=== PATIENT | male | born 1995 | race American Indian/Alaskan Native ===

== ENCOUNTER 2016-12-24 22:09 | Emergency (ER) | payer OTHER, MEDICAID ==
[2016-12-24 23:00] LABS: Basophils % (Auto) 0.6 % (0.0-1.8); Eosinophils % (Auto) 0.8 % (0.0-4.3); Hematocrit 47.4 % (35.5-45.6); Hemoglobin 16.3 gm/dl (11.8-15.2); Mean Corpuscular HGB Conc 34 % (32-34); Mean Corpuscular Hemoglobin 30 pg (28-32); Mean Corpuscular Volume 88 fl (84-94); Platelet Count 320 K/mm3 (140-440); Red Blood Count 5.41 M/mm3 (3.65-5.03); Red Cell Distribution Width 13.8 % (13.2-15.2); White Blood Count 7.1 K/mm3 (4.5-11.0)
[2016-12-24 23:19] LABS: Anion Gap 19 mmol/L; BUN/Creatinine Ratio 11.53; Blood Urea Nitrogen 15 mg/dL (9-20); Calcium 9.6 mg/dL (8.4-10.2); Carbon Dioxide 26 mmol/L (22-30); Chloride 99.6 mmol/L (98-107); Glucose 100 mg/dL (75-100); Potassium 3.9 mmol/L (3.6-5.0); Sodium 141 mmol/L (137-145)
--- NOTE | 2016-12-25 00:39 | Emergency Department Report ---
ED Psych HPI - General Chief Complaint: Psych Stated Complaint: MH Source: patient Mode of arrival: Ambulatory Limitations: Other (patient is disorganized, and he is a poor historian.) - History of Present Illness Initial Comments: This is a 21-year-old male. He is previously unknown to me. The patient comes to the ER complaining of suicidality. He reported that he wanted to shoot himself with a gun. The patient denies headache, neck pain, chest pain, abdominal pain and shortness of breath. He cannot describe exacerbating or relieving factors. To me he denies hallucinations. He denies intentional overdose. MD Complaint: suicidal ideation, feels depressed -: Gradual Associated Psychiatric Symptoms: suicidal ideation Quality: constant Improves With: none Worsens With: none If Self Harm: admits thoughts of, has plan - Related Data Home Medications Medication Instructions Recorded Confirmed Last Taken Abilify TAB 5 mg PO QAM 12/25/16 12/25/16 Unknown Divalproex Sodium 500 mg PO BID 12/25/16 12/25/16 Unknown [place] Carbonate 300 mg PO BID 12/25/16 12/25/16 Unknown Naltrexone HCl 50 mg PO QAM 12/25/16 12/25/16 Unknown Omeprazole 40 mg PO QAM 12/25/16 12/25/16 Unknown Ranitidine HCl 150 mg PO QPM 12/25/16 12/25/16 Unknown SEROquel 100 mg PO QAM 12/25/16 12/25/16 Unknown SEROquel 200 mg PO QPM 12/25/16 12/25/16 Unknown Synthroid 125 mcg PO QAM 12/25/16 12/25/16 Unknown fluvoxaMINE (NF) 100 mg PO BID 12/25/16 12/25/16 Unknown Allergies Allergy/AdvReac Type Severity Reaction Status Date / Time No Known Allergies Allergy Verified 12/24/16 22:19 ED Review of Systems ROS: Stated complaint: MH Other details as noted in HPI Constitutional: denies: fever, malaise Eyes: denies: vision change ENT: denies: epistaxis Respiratory: denies: cough Cardiovascular: denies: palpitations Gastrointestinal: denies: abdominal pain Genitourinary: as per HPI. denies: urgency, dysuria Skin: denies: as per HPI, lesions Neurological: denies: weakness Psychiatric: depression, suicidal thoughts ED Past Medical Hx - Past Medical History Previous Medical History?: Yes Additional medical history: alcohol syndrome - Surgical History Past Surgical History?: Yes Additional Surgical History: pluero plasty - Social History Smoking Status: Never Smoker Substance Use Type: None - Medications Home Medications: Home Medications Medication Instructions Recorded Confirmed Last Taken Type Abilify TAB 5 mg PO QAM 12/25/16 12/25/16 Unknown History Divalproex Sodium 500 mg PO BID 12/25/16 12/25/16 Unknown History [place] Carbonate 300 mg PO BID 12/25/16 12/25/16 Unknown History Naltrexone HCl 50 mg PO QAM 12/25/16 12/25/16 Unknown History Omeprazole 40 mg PO QAM 12/25/16 12/25/16 Unknown History Ranitidine HCl 150 mg PO QPM 12/25/16 12/25/16 Unknown History SEROquel 100 mg PO QAM 12/25/16 12/25/16 Unknown History SEROquel 200 mg PO QPM 12/25/16 12/25/16 Unknown History Synthroid 125 mcg PO QAM 12/25/16 12/25/16 Unknown History fluvoxaMINE (NF) 100 mg PO BID 12/25/16 12/25/16 Unknown History ED Physical Exam - General Limitations: Other (patient is a poor historian) General appearance: alert, in no apparent distress - Head Head exam: Present: atraumatic, normocephalic - Eye Eye exam: Present: normal appearance, EOMI. Absent: nystagmus - ENT ENT exam: Present: normal exam, normal orophraynx, mucous membranes moist, normal external ear exam - Neck Neck exam: Present: normal inspection, full ROM. Absent: tenderness, meningismus - Respiratory Respiratory exam: Present: normal lung sounds bilaterally. Absent: respiratory distress, wheezes, rales, rhonchi, stridor, chest wall tenderness, accessory muscle use, decreased breath sounds, prolonged expiratory - Cardiovascular Cardiovascular Exam: Present: regular rate, normal rhythm, normal heart sounds. Absent: bradycardia, tachycardia, irregular rhythm, systolic murmur, diastolic murmur, rubs, gallop - GI/Abdominal GI/Abdominal exam: Present: soft, normal bowel sounds. Absent: distended, tenderness, guarding, rebound, rigid, pulsatile mass - Rectal Rectal exam: Present: deferred - Extremities Exam Extremities exam: Present: normal inspection, full ROM, normal capillary refill. Absent: tenderness, pedal edema, joint swelling, calf tenderness - Back Exam Back exam: Present: normal inspection, full ROM. Absent: tenderness, CVA tenderness (R), CVA tenderness (L), muscle spasm, paraspinal tenderness, vertebral tenderness - Neurological Exam Neurological exam: Present: alert (patient thinks it is 2017. Thinks the month is January. [facility] is at [facility]), normal gait, other (Extraocular movements intact. Tongue midline. No facial droop. Facial sensation intact to light touch in the V1, V2, V3 distribution bilaterally. 5 and 5 strength in 4 extremities.. Sensation is intact to light touch in 4 extremities.). Absent : motor sensory deficit - Psychiatric Psychiatric exam: Present: flat affect, suicidal ideation - Skin Skin exam: Present: warm, dry, intact, normal color. Absent: rash ED Course Vital Signs 12/24/16 22:19 Temperature 98 F Pulse Rate 108 H Respiratory 16 Rate Blood Pressure 110/64 O2 Sat by Pulse 100 Oximetry - Reevaluation(s) Reevaluation #1: 12/25/16 05:58 Dr Hathaway to follow up on lithium level ED Medical Decision Making - Lab Data Result diagrams: 12/24/16 22:34 12/24/16 22:34 Vital Signs 12/24/16 22:19 Temperature 98 F Pulse Rate 108 H Respiratory 16 Rate Blood Pressure 110/64 O2 Sat by Pulse 100 Oximetry Lab Results 12/24/16 12/24/16 12/24/16 Range/Units 22:34 22:34 22:34 WBC 7.1 (4.5-11.0) K/mm3 RBC 5.41 H (3.65-5.03) M/mm3 Hgb 16.3 H (11.8-15.2) gm/dl Hct 47.4 H (35.5-45.6) % MCV 88 (84-94) fl MCH 30 (28-32) pg MCHC 34 (32-34) % RDW 13.8 (13.2-15.2) % Plt Count 320 (140-440) K/mm3 Lymph % (Auto) 17.6 (13.4-35.0) % [place] % (Auto) 8.5 H (0.0-7.3) % Eos % (Auto) 0.8 (0.0-4.3) % Baso % (Auto) 0.6 (0.0-1.8) % Lymph # 1.2 (1.2-5.4) K/mm3 [place] # 0.6 (0.0-0.8) K/mm3 Eos # 0.1 (0.0-0.4) K/mm3 Baso # 0.0 (0.0-0.1) K/mm3 Seg Neutrophils % 72.5 H (40.0-70.0) % Seg Neutrophils # 5.1 (1.8-7.7) K/mm3 Sodium 141 (137-145) mmol/L Potassium 3.9 (3.6-5.0) mmol/L Chloride 99.6 (98-107) mmol/L Carbon Dioxide 26 (22-30) mmol/L Anion Gap 19 mmol/L BUN 15 (9-20) mg/dL Creatinine 1.3 (0.8-1.5) mg/dL Estimated GFR > 60 ml/min BUN/Creatinine Ratio 11.53 % Glucose 100 (75-100) mg/dL Calcium 9.6 (8.4-10.2) mg/dL Total Creatine Kinase (55-170) units/L Urine Color (Yellow) Urine Turbidity (Clear) Urine pH (5.0-7.0) Ur Specific [place] (1.003-1.030) Urine Protein (Negative) mg/dL Urine Glucose (UA) (Negative) mg/dL Urine Ketones (Negative) mg/dL Urine Blood (Negative) Urine Nitrite (Negative) Urine Bilirubin (Negative) Urine Urobilinogen (<2.0) mg/dL Ur Leukocyte Esterase (Negative) Urine WBC (Auto) (0.0-6.0) /HPF Urine RBC (Auto) (0.0-6.0) /HPF U Epithel Cells (Auto) (0-13.0) /HPF Hyaline Casts /LPF Urine Mucus /HPF Salicylates (2.8-20.0) mg/dL Urine Opiates Screen Urine Methadone Screen Acetaminophen (10.0-30.0) ug/mL Ur Barbiturates Screen Valproic Acid (50-100) ug/mL Ur Phencyclidine Scrn Ur Amphetamines Screen U Benzodiazepines Scrn Urine Cocaine Screen U Marijuana (THC) Screen Drugs of Abuse Note Plasma/Serum Alcohol < 0.01 (0-0.07) gm% 12/25/16 12/25/16 12/25/16 Range/Units 00:38 00:38 00:41 WBC (4.5-11.0) K/mm3 RBC (3.65-5.03) M/mm3 Hgb (11.8-15.2) gm/dl Hct (35.5-45.6) % MCV (84-94) fl MCH (28-32) pg MCHC (32-34) % RDW (13.2-15.2) % Plt Count (140-440) K/mm3 Lymph % (Auto) (13.4-35.0) % [place] % (Auto) (0.0-7.3) % Eos % (Auto) (0.0-4.3) % Baso % (Auto) (0.0-1.8) % Lymph # (1.2-5.4) K/mm3 [place] # (0.0-0.8) K/mm3 Eos # (0.0-0.4) K/mm3 Baso # (0.0-0.1) K/mm3 Seg Neutrophils % (40.0-70.0) % Seg Neutrophils # (1.8-7.7) K/mm3 Sodium (137-145) mmol/L Potassium (3.6-5.0) mmol/L Chloride (98-107) mmol/L Carbon Dioxide (22-30) mmol/L Anion Gap mmol/L BUN (9-20) mg/dL Creatinine (0.8-1.5) mg/dL Estimated GFR ml/min BUN/Creatinine Ratio % Glucose (75-100) mg/dL Calcium (8.4-10.2) mg/dL Total Creatine Kinase 479 H (55-170) units/L Urine Color Yellow (Yellow) Urine Turbidity Clear (Clear) Urine pH 6.0 (5.0-7.0) Ur Specific [place] 1.025 (1.003-1.030) Urine Protein 30 mg/dl (Negative) mg/dL Urine Glucose (UA) Neg (Negative) mg/dL Urine Ketones Neg (Negative) mg/dL Urine Blood Neg (Negative) Urine Nitrite Neg (Negative) Urine Bilirubin Neg (Negative) Urine Urobilinogen 2.0 (<2.0) mg/dL Ur Leukocyte Esterase Neg (Negative) Urine WBC (Auto) 1.0 (0.0-6.0) /HPF Urine RBC (Auto) 2.0 (0.0-6.0) /HPF U Epithel Cells (Auto) < 1.0 (0-13.0) /HPF Hyaline Casts 1 /LPF Urine Mucus Few /HPF Salicylates (2.8-20.0) mg/dL Urine Opiates Screen Presumptive negative Urine Methadone Screen Presumptive negative Acetaminophen (10.0-30.0) ug/mL Ur Barbiturates Screen Presumptive positive Valproic Acid (50-100) ug/mL Ur Phencyclidine Scrn Presumptive negative Ur Amphetamines Screen Presumptive negative U Benzodiazepines Scrn Presumptive negative Urine Cocaine Screen Presumptive negative U Marijuana (THC) Screen Presumptive negative Drugs of Abuse Note Disclamer Plasma/Serum Alcohol (0-0.07) gm% 12/25/16 12/25/16 Range/Units 00:41 00:41 WBC (4.5-11.0) K/mm3 RBC (3.65-5.03) M/mm3 Hgb (11.8-15.2) gm/dl Hct (35.5-45.6) % MCV (84-94) fl MCH (28-32) pg MCHC (32-34) % RDW (13.2-15.2) % Plt Count (140-440) K/mm3 Lymph % (Auto) (13.4-35.0) % [place] % (Auto) (0.0-7.3) % Eos % (Auto) (0.0-4.3) % Baso % (Auto) (0.0-1.8) % Lymph # (1.2-5.4) K/mm3 [place] # (0.0-0.8) K/mm3 Eos # (0.0-0.4) K/mm3 Baso # (0.0-0.1) K/mm3 Seg Neutrophils % (40.0-70.0) % Seg Neutrophils # (1.8-7.7) K/mm3 Sodium (137-145) mmol/L Potassium (3.6-5.0) mmol/L Chloride (98-107) mmol/L Carbon Dioxide (22-30) mmol/L Anion Gap mmol/L BUN (9-20) mg/dL Creatinine (0.8-1.5) mg/dL Estimated GFR ml/min BUN/Creatinine Ratio % Glucose (75-100) mg/dL Calcium (8.4-10.2) mg/dL Total Creatine Kinase (55-170) units/L Urine Color (Yellow) Urine Turbidity (Clear) Urine pH (5.0-7.0) Ur Specific [place] (1.003-1.030) Urine Protein (Negative) mg/dL Urine Glucose (UA) (Negative) mg/dL Urine Ketones (Negative) mg/dL Urine Blood (Negative) Urine Nitrite (Negative) Urine Bilirubin (Negative) Urine Urobilinogen (<2.0) mg/dL Ur Leukocyte Esterase (Negative) Urine WBC (Auto) (0.0-6.0) /HPF Urine RBC (Auto) (0.0-6.0) /HPF U Epithel Cells (Auto) (0-13.0) /HPF Hyaline Casts /LPF Urine Mucus /HPF Salicylates < 0.3 L (2.8-20.0) mg/dL Urine Opiates Screen Urine Methadone Screen Acetaminophen < 15.0 (10.0-30.0) ug/mL Ur Barbiturates Screen Valproic Acid 36.9 L (50-100) ug/mL Ur Phencyclidine Scrn Ur Amphetamines Screen U Benzodiazepines Scrn Urine Cocaine Screen U Marijuana (THC) Screen Drugs of Abuse Note Plasma/Serum Alcohol (0-0.07) gm% - EKG Data -: EKG Interpreted by Sd EKG shows normal: sinus rhythm Rate: normal - EKG Data When compared to previous EKG there are: previous EKG unavailable 12/25/16 04:35 Normal sinus, 71 bpm, normal intervals, normal axis, not morphologically consistent with STEMI, there is no prior for comparison - Radiology Data Radiology results: pending, report reviewed Noncontrast CT scan of the brain is negative - Medical Decision Making Differential diagnosis: Decompensated psychosis, schizophrenia, bipolar, mood disorder, suicidality Assessment and plan: 21-year-old male with suicidality and plan to shoot himself. He is afebrile, with reassuring vital signs and his tachycardia has resolved. His neurologic examination is nonfocal, a noncontrast CT scan of the brain is negative, his laboratory studies are unremarkable. He is placed on a 1013. The nurses going to attempt a medication reconciliation. At this point in time, there is no immediate medical contraindication to psychiatric admission /evaluation. Critical care attestation.: If time is entered above; I have spent that time in minutes in the direct care of this critically ill patient, excluding procedure time. ED Disposition Clinical Impression: Mood disorder Disposition: [id number]/TX-65 PSY HOSP/PSY UNIT Is pt being admited?: No Does the pt Need Aspirin: No Condition: Stable Referrals: PRIMARY CARE, [Primary Care Provider] - 3-5 Days
[2016-12-25 00:46] LABS: Urine Drugs of Abuse Note Disclamer
[2016-12-25 01:14] LABS: Valproate 36.9 ug/mL (50-100)
[2016-12-25 01:15] LABS: Salicylate < 0.3 mg/dL (2.8-20.0)
[2016-12-25 01:15] LABS: Bilirubin,Urine NEG (Negative); Blood,Urine NEG (Negative); Ketones,Urine NEG (Negative); Leukocyte Esterase,Urine NEG (Negative); Mucus,Urine FEW /HPF; Nitrite,Urine NEG (Negative)
--- NOTE | 2016-12-25 02:55 | Cat Scan Report ---
FINAL REPORT PROCEDURE: CT HEAD/BRAIN WO CON TECHNIQUE: Computerized tomography of the head was performed without contrast material. HISTORY: ams COMPARISON: No prior studies are available for comparison. FINDINGS: Skull and scalp: Normal. Paranasal sinuses: Normal. Ventricles and subarachnoid spaces: Normal. Cerebrum: No evidence of hemorrhage, acute infarction or mass . Cerebellum and brainstem: No evidence of hemorrhage, acute infarction or mass. Vasculature: Normal. Comments: None. IMPRESSION: Normal Examination
[2016-12-25] MEDS ORDERED: ATIVAN IM PRN (04:37)
[2016-12-25] MEDS ORDERED: LITHIUM CARBONATE 300 MG PO SCH (10:00)
[2016-12-25] MEDS ORDERED: ABILIFY PO SCH (10:00)
[2016-12-25] MEDS ORDERED: PROTONIX PO SCH (10:00)
[2016-12-25] MEDS: LITHOBID ER PO SCH ×2 (12:16→22:00)
--- NOTE | 2016-12-25 18:18 | Consultation ---
History of Present Illness - Reason for Consult Consult date: 12/25/16 Reason for consult: Mental Health Evaluation Requesting physician: SRAVANI FERNANDEZ - Chief Complaint Chief complaint: "I want to go back to [facility]" - History of Present Psychiatric Illness This is a 21-year-old male presenting to [facility] for suicidality. Today patient is cooperative, but irritable during assessment. He stated that he got into a argument with a staff member at the [facility] and was kicked out. He stated that he was told to come to [facility] to see if he can return. He stated that he was feeling suicidal because he was angry. He denies stating that he wanted to use a gun to shoot himself when he spoke with the ER doctor. He would not tell me what he said. He got angry when I informed him he was placed on a 1013. He denies SI/HI's, AVH's, and depression symptoms. He denies recreational drug use and excessive alcohol consumption (etoh). Medications and Allergies Allergies Allergy/AdvReac Type Severity Reaction Status Date / Time No Known Allergies Allergy Verified 12/24/16 22:19 Home Medications Medication Instructions Recorded Confirmed Last Taken Type Abilify TAB 5 mg PO QAM 12/25/16 12/25/16 Unknown History Divalproex Sodium 500 mg PO BID 12/25/16 12/25/16 Unknown History [place] Carbonate 300 mg PO BID 12/25/16 12/25/16 Unknown History Naltrexone HCl 50 mg PO QAM 12/25/16 12/25/16 Unknown History Omeprazole 40 mg PO QAM 12/25/16 12/25/16 Unknown History Ranitidine HCl 150 mg PO QPM 12/25/16 12/25/16 Unknown History SEROquel 100 mg PO QAM 12/25/16 12/25/16 Unknown History SEROquel 200 mg PO QPM 12/25/16 12/25/16 Unknown History Synthroid 125 mcg PO QAM 12/25/16 12/25/16 Unknown History fluvoxaMINE (NF) 100 mg PO BID 12/25/16 12/25/16 Unknown History Active Meds: Active Medications Divalproex Sodium (Depakote Dr) 500 mg PO BID MADDIE Last Admin: 12/25/16 10:20 Dose: 500 mg Levothyroxine Sodium (Synthroid) 125 mcg PO QAM@00 [facility] [place] Carbonate (Lithobid Er) 300 mg PO BID [facility] Last Admin: 12/25/16 12:16 Dose: 300 mg Lorazepam (Ativan) 2 mg IM Q4HR PRN PRN Reason: Agitation Pantoprazole Sodium (Protonix) 40 mg PO DAILY [facility] Last Admin: 12/25/16 10:20 Dose: 40 mg Quetiapine Fumarate (Seroquel) 100 mg PO ONCE ONE Stop: 12/25/16 22:01 Past psychiatric history - Past Medical History Past Medical History: other (FAS) Past Surgical History: Other (Pleuro Plasty) - past Psychiatric treatment and history Psych: Bipolar psychiatric treatment history: [facility] inpatient setting. Denies a fam psy hx. - Social History Social history: lives with family ([employer] graduate) Mental Status Exam - Vital signs Last Vital Signs Temp 98.6 F 12/25/16 12:27 Pulse 70 12/25/16 12:27 Resp 16 12/25/16 12:27 BP 126/63 12/25/16 12:27 Pulse Ox 97 12/25/16 12:27 - Exam Narrative exam: ROS (-) psychosis MSE: Appearance: cooperative, irritable Behavior: poor eye contact Speech: regular rate and tone Mood: "okay" Affect: flat Thought Process: circumstantial Thought Content: denies HI's and AVH's Motor Activity: ambulatory Cognition: A/Ox 3 Insight: limited Judgment: limited Results Result Diagrams: 12/24/16 22:34 12/24/16 22:34 Abnormal lab results 12/24/16 12/25/16 12/25/16 Range/Units 22:34 00:41 00:41 RBC 5.41 H (3.65-5.03) M/mm3 Hgb 16.3 H (11.8-15.2) gm/dl Hct 47.4 H (35.5-45.6) % [place] % (Auto) 8.5 H (0.0-7.3) % Seg Neutrophils % 72.5 H (40.0-70.0) % Total Creatine Kinase 479 H (55-170) units/L Salicylates < 0.3 L (2.8-20.0) mg/dL Valproic Acid 36.9 L (50-100) ug/mL All other labs normal. Assessment and Plan Assessment and plan: Impression: Historical Dx: Bipolar DO. Today patient is cooperative, but irritable during assessment. Possible impulsive behavior. DDx: R/O Depressive DO Recommendation/Plan: Continue 1013 with placement to [facility]. Continue current medication regimen.
[2016-12-25 20:01] VITALS: BP 115/60
[2016-12-26] MEDS ORDERED: SYNTHROID PO SCH (06:00)
== END 2016-12-25 23:31 ==
LOC: ED 22:09 → EEVIPCON 22:09 → ED 12-25 23:31
DX: F39 Unspecified mood [affective] disorder (principal)
CPT/HCPCS: 36415; 70450; 80048; 80164; 80178; 80307; 81001; 82550; 85025; 93005; 93010; 99285; G0480; 80320